=== PATIENT | female | born 1985 | race Caucasian/White ===

== ENCOUNTER 2023-01-17 | Emergency (ER) | payer OTHER ==
[2023-01-17 00:09] VITALS: RESP 18; BMI 34.9
[2023-01-17 03:08] LABS: HEMATOCRIT 38.3 % (32.4-45.2); HEMOGLOBIN 12.7 GM/dL (10.7-15.3); MCH 30.5 pg (25.7-33.7); MCHC 33.3 g/dl (32.0-36.0); MEAN CELL VOLUME 91.6 fl (80-96); MEAN PLT VOLUME 8.8 fl (7.5-11.1); PLATELET COUNT 211 10^3/uL (134-434); RBC 4.18 M/mm3 (3.60-5.2); RDW 12.5 % (11.6-15.6); WHITE BLOOD COUNT 5.8 K/mm3 (4.0-10.0)
[2023-01-17 03:27] LABS: POTASSIUM 4.4 mmol/L (3.5-5.1)
[2023-01-17 03:29] LABS: ALBUMIN 3.2 g/dl (3.4-5.0); CALCIUM 8.4 mg/dL (8.5-10.1)
[2023-01-17 03:30] LABS: BLOOD UREA NITROGEN 15.2 mg/dL (7-18)
[2023-01-17 03:32] LABS: CREATININE 0.6 mg/dL (0.55-1.3)
[2023-01-17 03:34] LABS: BILIRUBIN,TOTAL 0.2 mg/dL (0.2-1); TOT PROT 6.9 g/dl (6.4-8.2)
[2023-01-17] MEDS ORDERED: SODIUM CHLORIDE 0.9% 500 ML INFUS.BAG IV ONE (04:58)
[2023-01-17 06:05] VITALS: BP 132/76; PULSE 80; TEMP 98
== END 2023-01-17 06:05 | disposition home or self-care (01) ==
LOC: JER
DX: R00.2 Palpitations (principal); R06.02 Shortness of breath; J09.X2 Influenza due to identified novel influenza A virus with other respiratory manifestations; R00.0 Tachycardia, unspecified; Z20.822 Contact with and (suspected) exposure to COVID-19
CPT/HCPCS: 0241U-QW; 36415; 71046-TC-FY; 80053; 84439; 84443; 84479; 84481; 84484; 84703; 85027; 93005; 93010; 99285-25